=== PATIENT | female | born 1995 | race Caucasian/White ===

== ENCOUNTER 2022-05-24 14:34 | Emergency (ER) | payer MEDICAID ==
[~2022-05-24] VITALS: Ht 165.1 cm; Wt 77.1 kg
[2022-05-24] MEDS ORDERED: HALOPERIDOL LACTATE 5 MG/1 ML VIAL ONE (14:43)
[2022-05-24] MEDS ORDERED: MIDAZOLAM HCL 2 MG/2 ML VIAL ONE (14:44)
[2022-05-24] MEDS ORDERED: HALOPERIDOL LACTATE 5 MG/1 ML VIAL IM ONE (14:45)
[2022-05-24] MEDS ORDERED: MIDAZOLAM HCL 2 MG/2 ML VIAL IM ONE (14:45)
--- NOTE | 2022-05-24 14:49 | NUR ---
[email or web address]
--- NOTE | 2022-05-24 14:50 | NUR ---
Nursing SBAR given to FELIZ Cochran
[2022-05-24 15:08] LABS: HEMATOCRIT 39.3 % (31.2-41.9); MEAN CORPUSCULAR HEMOGLOBIN 28.1 uug (24.7-32.8); MEAN CORPUSCULAR VOLUME 86.9 fL (75.5-95.3); PLATELET COUNT (AUTO) 388 K/uL (179-408)
[2022-05-24 15:40] LABS: ETHANOL < 3 MG/DL (0-0)
[2022-05-24 15:57] LABS: CARBON DIOXIDE 25 mmol/L (21-32); CHLORIDE 103 mmol/L (98-107); GLUCOSE 100 mg/dL (74-106); POTASSIUM 3.8 mmol/L (3.5-5.1); UREA NITROGEN, BLOOD 9 mg/dL (7-18)
[2022-05-24 15:58] LABS: CREATININE 0.8 mg/dL (0.6-1.3)
[2022-05-24 16:03] LABS: ALANINE AMINOTRANSFERASE 24 U/L (14-59); ALKALINE PHOSPHATASE 69 U/L (50-136); ASPARTATE AMINOTRANSFERASE 9 U/L (15-37); BILIRUBIN,DIRECT 0.1 mg/dL (0.0-0.2); BILIRUBIN,TOTAL 0.4 mg/dL (0.2-1.0); TOTAL PROTEIN, SERUM 7.9 g/dL (6.4-8.2)
[2022-05-24 16:05] LABS: ACETAMINOPHEN < 2.0 ug/mL (10-30)
--- NOTE | 2022-05-24 16:22 | NUR ---
Clinical SW Note: Pt is alert and oriented x1. Pt appeared calm and singing. Pt appeared to have difficulty maintaining eye-contact and was not able to answer most of this SW's questions. Pt appeared confused for the duration of the assessment and proceeded to sing. Per officer, Igor crawley #[id number], pt was in a hair salon and began to spill her coke all over her hair and begin to state unclear statements not making sense. Pt reported to the officer that she took abilify. Per report, pt did not know further details. Officer Igor reported they saw the pt walk into traffic after leaving the hair salon. Pt appeared confused and began to sing. Pt was not redirectable. Pt at bedside was also not redirectable by this SW. Per officer, pt's last psychiatric hospitalization was on May 05, [address] [facility] for danger to self. No family contact available at this time. Per ER, crisis team will evaluate pt. SW will remain available and follow-up as needed for further care and discharge planning.
[2022-05-24] MEDS ORDERED: OLANZAPINE 10 MG VIAL IM ONE ×2 (16:30→16:34)
--- NOTE | 2022-05-24 16:33 | NUR ---
Patient was moved by battery recharger Grace from ER room 2A to ER room 4A. Nursing report received from FELIZ Cochran. Patient is still not cooperative, she is singing loudly and does not follow simple commands. landcare officer is at bedside, pending sitter and urine specimen.
[2022-05-24 17:48] LABS: *BILIRUBIN,URIN NEGATIVE (NEGATIVE); *BLOOD, URINE NEGATIVE (NEGATIVE); *CLARITY,URINE CLEAR (CLEAR); *COLOR,URINE YELLOW (YELLOW); *KETONES,URINE NEGATIVE (NEGATIVE); *URINE HCG, QUAL NEG (NEGATIVE); *UROBILINOGEN,URINE 0.2 E.U./dl (NORMAL); LEUKOCYTE ESTERASE ,URINE NEGATIVE (NEGATIVE); NITRITE, URINE NEGATIVE (NEGATIVE); PH,URINE 5.5 (5.0-8.0); UGLUCOSE NEGATIVE (NEGATIVE)
[2022-05-24 17:56] LABS: *AMPHETAMINE, URINE NEGATIVE (NEGATIVE); *CANNABINOID, URINE POSITIVE (NEGATIVE); *COCCAINE, URINE NEGATIVE (NEGATIVE); *OPIATE, URINE NEGATIVE (NEGATIVE); *PHENCYCLIDINE SCREEN,URINE NEGATIVE (NEGATIVE)
--- NOTE | 2022-05-24 18:09 | NUR ---
Patient is now calmer, eating dinner and talking coherently. She is following simple commands. All restraints are off. 1:1 sitter is at bedside.
--- NOTE | 2022-05-24 18:53 | NUR ---
Patient is resting comfortably on gurney with eyes closed, denies suicidal or homicidal thoughts. At 1820, Renuka,our social work specialist director/healthcare administrator said that Rocael Niurka is coming to ER. 1:1 [email or web address].
--- NOTE | 2022-05-24 19:36 | NUR ---
Nursing report given to FELIZ Puentes
--- NOTE | 2022-05-24 19:40 | NUR ---
Patient cousin Annabelle into visit and stated that patient lives with her. Also reported that patient has psych issues and is triggered with the use of recreational drugs. Left her phone number . Also gave patient mother's phone number Anna , who lives in [place].
--- NOTE | 2022-05-24 19:51 | NUR ---
Telephone call from patient father [place] and gave infromation and update on patient condition as authorized by the patient. Per patient father, patient with Hx of Psychosis and had been in a mental health facility before. Father on his way here but is coming all the way from [place]. Still awaiting for crisis team. Spoke to Renuka as well and stated that Mike/PET team, will be coming between 11-12mn.
[2022-05-24 21:50] LABS: MAGNESIUM 2.1 mg/dL (1.8-2.4)
--- NOTE | 2022-05-24 23:00 | NUR ---
Patient awake, pleasant, no behavioral problem noted at this time. Request for snack and given. 1:1 sitter at bedside.
--- NOTE | 2022-05-24 23:19 | NUR ---
PET Team/Mike arrived to evaluate patient
[2022-05-24] MEDS ORDERED: CYANOCOBALAMIN 1000 MCG/ML VIAL IM ONE (23:45)
[2022-05-24] MEDS ORDERED: CYANOCOBALAMIN 1000 MCG/ML VIAL ONE (23:50)
--- NOTE | 2022-05-25 01:11 | NUR ---
Patient parents arrived, speaking to PET Team/Art
--- NOTE | 2022-05-25 01:27 | NUR ---
Dr. Apodaca talking to patient parents.
[2022-05-25] MEDS ORDERED: HALOPERIDOL LACTATE 5 MG/1 ML VIAL ONE (01:55)
[2022-05-25] MEDS ORDERED: SYRI-29 MC (03:55)
[2022-05-25] MEDS ORDERED: RISP2TAB5 PO (03:55)
[2022-05-25] MEDS ORDERED: MECO10006 IM (03:55)
--- NOTE | 2022-05-25 08:10 | NUR ---
Called [facility], on-call, Nithya who stated that the pt was still Art's case to re-evaluate. Called Renuka to clarify policy; she stated to get SOLANGE Ortega, involved. Shannon is going to work on it.
--- NOTE | 2022-05-25 08:38 | NUR ---
Clinical Social Work Note: SW called and faxed the patient's clinical information to [facility] (fax: [phone]), [facility] (fax: [phone]), [facility] (fax: [phone]), [facility] (fax: [phone]), and [facility] (fax: [phone]). SOLANGE will continue to follow up.
--- NOTE | 2022-05-25 09:31 | NUR ---
Renuka re-evaluated pt and removed the 5150 hold. She will write it up. Gave pt RX and d/c instructions, pt verbalized understanding.
--- NOTE | 2022-05-25 10:00 | NUR ---
Clinical Social Work Note: SW provided the patient with the mental health resource for [facility] ([phone]) [address] [facility] [address]. Patient was appreciative of the resource.
== END 2022-05-25 09:48 | disposition home or self-care (01) ==
LOC: ER 14:34
DX: F31.9 Bipolar disorder, unspecified (principal); F12.929 Cannabis use, unspecified with intoxication, unspecified; Z78.1 Physical restraint status; Z20.822 Contact with and (suspected) exposure to COVID-19
CPT/HCPCS: 80076; 80048; 81003; 82140; 82607; 84703; 83735; 85025; 87426; 36415; 99285; 96372 ×2; 80299; 80320; 80307; J3420; J1630; J2250; A4663; G0480; J2358